=== PATIENT | female | born 1960 | race Caucasian/White ===

== ENCOUNTER 2020-08-14 08:20 | Inpatient (IN) | payer OTHER ==
[~2020-08-14] VITALS: Ht 167.6 cm; Wt 72.6 kg
[2020-08-14 08:34] LABS: HEMOGLOBIN 14.6 gm/dl (12.3-15.3); RED BLOOD COUNT 4.56 M/UL (4.00-5.10); WHITE BLOOD COUNT 12.3 K/UL (4.5-11.0)
[2020-08-14 08:55] LABS: BUN/CREATININE RATIO 25 (0-10)
[2020-08-14] MEDS ORDERED: VENTOLIN HFA 66.7 GM INH (10:55)
[2020-08-14] MEDS ORDERED: PROZAC20 MG PO (10:55)
[2020-08-14] MEDS ORDERED: ATORVASTATIN CA40 MG PO (10:56)
[2020-08-14] MEDS ORDERED: ALENDRONATE SOD70 MG PO (10:56)
[2020-08-14] MEDS ORDERED: IBUPROFEN800 MG PO (10:57)
[2020-08-14] MEDS ORDERED: SYMBICORT 16010.2 GM INH (10:57)
[2020-08-14] MEDS ORDERED: VITAMIN D21250 MCG PO (10:57)
[2020-08-14] MEDS ORDERED: CLARITIN10 MG PO (10:58)
[2020-08-14] MEDS ORDERED: NITROSTAT 0.40.4 MG SL (10:58)
[2020-08-14] MEDS ORDERED: LEVOTHYROXINE25 MC1 PO (10:59)
[2020-08-14] MEDS ORDERED: ROXICODONE5 MG PO (11:00)
[2020-08-14] MEDS ORDERED: NEXIUM40 MG PO (12:04)
[2020-08-14 19:31] LABS: HEMOGLOBIN 13.3 gm/dl (12.3-15.3); RED BLOOD COUNT 4.2 M/UL (4.00-5.10); WHITE BLOOD COUNT 14.5 K/UL (4.5-11.0)
[2020-08-14 19:53] LABS: BUN/CREATININE RATIO 23 (0-10)
[2020-08-15 05:40] LABS: HEMOGLOBIN 12.8 gm/dl (12.3-15.3); RED BLOOD COUNT 4.06 M/UL (4.00-5.10); WHITE BLOOD COUNT 16.6 K/UL (4.5-11.0)
[2020-08-15 06:09] LABS: BUN/CREATININE RATIO 18 (0-10)
[2020-08-16 05:28] LABS: HEMOGLOBIN 12.1 gm/dl (12.3-15.3); RED BLOOD COUNT 3.87 M/UL (4.00-5.10)
[2020-08-16 05:40] LABS: WHITE BLOOD COUNT 11.3 K/UL (4.5-11.0)
[2020-08-17 05:53] LABS: BUN/CREATININE RATIO 18 (0-10)
--- NOTE | 2020-08-17 12:13 | NUR ---
REPORT CALLED TO CHANDANA JOY AT [facility] HAS BEEN REQUESTED FOR TRANSPORT
== END 2020-08-17 14:40 | disposition short-term general hospital (02) | DRG 247 ==
LOC: ER1 08:20 → CDU 08:25 → CCU 08:47
PROVIDERS: Emergency Medicine; Internal Medicine Cardiovascular Disease; ADMIT Internal Medicine Interventional Cardiology
PROC: B2161ZZ Fluoroscopy of Right and Left Heart using Low Osmolar Contrast (ICD-10-PCS; principal; 2020-08-14)
PROC: 027034Z Dilation of Coronary Artery, One Artery with Drug-eluting Intraluminal Device, Percutaneous Approach (ICD-10-PCS; 2020-08-14)
PROC: 4A023N7 Measurement of Cardiac Sampling and Pressure, Left Heart, Percutaneous Approach (ICD-10-PCS; 2020-08-14)
PROC: B2151ZZ Fluoroscopy of Left Heart using Low Osmolar Contrast (ICD-10-PCS; 2020-08-14)
DX: I21.09 ST elevation (STEMI) myocardial infarction involving other coronary artery of anterior wall (principal); E11.9 Type 2 diabetes mellitus without complications; E78.5 Hyperlipidemia, unspecified; Z20.822 Contact with and (suspected) exposure to COVID-19; E03.9 Hypothyroidism, unspecified; K21.9 Gastro-esophageal reflux disease without esophagitis; F32.9 Major depressive disorder, single episode, unspecified; G89.29 Other chronic pain; M54.5 Low back pain; I10 Essential (primary) hypertension; Z98.1 Arthrodesis status; Z82.49 Family history of ischemic heart disease and other diseases of the circulatory system; Z79.4 Long term (current) use of insulin; Z72.0 Tobacco use; Z84.89 Family history of other specified conditions; Z88.8 Allergy status to other drugs, medicaments and biological substances
CPT/HCPCS: ECHO; 36415; 71045; 80048; 80053; 80061; 82550; 82553; 83036; 83874; 84484; 85018; 85025; 85027; 85347; 85610; 85730; 93005; 93306; 93926; 94640; 94664; 94760; 99152; 99153; 99285; C1725; C1769; C1874; C1887; J0461; J1170; J1644; J2250; J2370; J2405; J2550; J3010; J3246; J7030; J7040; Q9965; U0002

== ENCOUNTER → 2020-12-28 | Outpatient (CLI) | payer OTHER ==
[~2020-12-28] MED LIST: ALENDRONATE SOD70 MG PO; ATORVASTATIN CA40 MG PO; CLARITIN10 MG PO; IBUPROFEN800 MG PO; LEVOTHYROXINE25 MC1 PO; NEXIUM40 MG PO; NITROSTAT 0.40.4 MG SL; PROZAC20 MG PO; ROXICODONE5 MG PO; SYMBICORT 16010.2 GM INH; VENTOLIN HFA 66.7 GM INH; VITAMIN D21250 MCG PO
== END ==
LOC: HEART 5 12-14 15:00
DX: I50.9 Heart failure, unspecified (principal); I25.10 Atherosclerotic heart disease of native coronary artery without angina pectoris; I08.1 Rheumatic disorders of both mitral and tricuspid valves; I27.20 Pulmonary hypertension, unspecified
CPT/HCPCS: 93306

== ENCOUNTER 2021-03-21 08:42 | Emergency (ER) | payer OTHER | END 2021-03-21 11:50 | disposition home or self-care (01) | LOC: ER1 08:42 | DX: S82.092A Other fracture of left patella, initial encounter for closed fracture (principal); S60.051A Contusion of right little finger without damage to nail, initial encounter; I25.2 Old myocardial infarction; E78.5 Hyperlipidemia, unspecified; W01.0XXA Fall on same level from slipping, tripping and stumbling without subsequent striking against object, initial encounter | CPT/HCPCS: 73090; 73140; 73562; 96372; 99283; J2270 ==

== ENCOUNTER → 2021-07-08 | Outpatient (CLI) | payer OTHER | LOC: HEART 5 07:45 | DX: R07.9 Chest pain, unspecified (principal); I25.10 Atherosclerotic heart disease of native coronary artery without angina pectoris | CPT/HCPCS: 78452; A9502; J2785 ==

== ENCOUNTER → 2021-08-26 | Outpatient (CLI) | payer OTHER ==
[2021-08-26 13:48] LABS: HEMOGLOBIN 13.6 gm/dl (12.3-15.3); RED BLOOD COUNT 4.48 M/UL (4.00-5.10); WHITE BLOOD COUNT 9.9 K/UL (4.5-11.0)
[2021-08-26 14:05] LABS: BUN/CREATININE RATIO 26 (0-10)
== END ==
LOC: LAB 13:02
PROVIDERS: Internal Medicine Interventional Cardiology
DX: Z01.818 Encounter for other preprocedural examination (principal); R94.39 Abnormal result of other cardiovascular function study; F41.9 Anxiety disorder, unspecified; I50.9 Heart failure, unspecified; J44.9 Chronic obstructive pulmonary disease, unspecified; I25.10 Atherosclerotic heart disease of native coronary artery without angina pectoris; F32.A Depression, unspecified; K21.9 Gastro-esophageal reflux disease without esophagitis; E78.00 Pure hypercholesterolemia, unspecified; E03.9 Hypothyroidism, unspecified; E11.9 Type 2 diabetes mellitus without complications
CPT/HCPCS: 36415; 80048; 85025; 85610; 85730; 93005

== ENCOUNTER → 2021-09-01 | Outpatient (CLI) | payer OTHER ==
[~2021-09-01] MED LIST changes: +BAYER CHEWABLE81 MG PO; +BRILINTA90 MG PO; +BUSPIRONE HCL10 MG PO; +ISOSORBIDE MONO60 MG PO; +LOPRESSOR 25 MG25 MG PO; +METFORMIN HCL500 MG PO; +OXYCODONE HCL10 MG PO; +ZYRTEC10 M3 PO
== END | disposition home or self-care (01) ==
LOC: CATH 09:25
DX: I25.118 Atherosclerotic heart disease of native coronary artery with other forms of angina pectoris (principal); I21.09 ST elevation (STEMI) myocardial infarction involving other coronary artery of anterior wall; I50.9 Heart failure, unspecified; I25.2 Old myocardial infarction; Z95.5 Presence of coronary angioplasty implant and graft; E11.9 Type 2 diabetes mellitus without complications; E78.00 Pure hypercholesterolemia, unspecified; J44.9 Chronic obstructive pulmonary disease, unspecified; M19.90 Unspecified osteoarthritis, unspecified site; K21.9 Gastro-esophageal reflux disease without esophagitis; E03.9 Hypothyroidism, unspecified; M81.0 Age-related osteoporosis without current pathological fracture; F41.9 Anxiety disorder, unspecified; F32.A Depression, unspecified; Z87.891 Personal history of nicotine dependence; Z79.82 Long term (current) use of aspirin; Z79.84 Long term (current) use of oral hypoglycemic drugs; Z79.899 Other long term (current) drug therapy; Z88.1 Allergy status to other antibiotic agents; Z72.89 Other problems related to lifestyle; Z82.49 Family history of ischemic heart disease and other diseases of the circulatory system
CPT/HCPCS: 82962; 85347; 99152; 99153; C1769; C1887; J0461; J1644; J2250; J2370; J2405; J3010; Q9967